=== PATIENT | female | born 1965 | race Hispanic/Latino ===

== ENCOUNTER 2022-06-16 15:54 | Emergency (ER) | payer OTHER ==
[~2022-06-16] VITALS: Ht 175.3 cm; Wt 127.5 kg
== END 2022-06-16 22:37 | disposition home or self-care (01) ==
LOC: ED 15:54
DX: M16.0 Bilateral primary osteoarthritis of hip (principal); M54.32 Sciatica, left side; J44.9 Chronic obstructive pulmonary disease, unspecified
CPT/HCPCS: 73502; 94640; 96372; 99283-25; A9270; J1885

== ENCOUNTER 2024-07-01 15:49 | Inpatient (IN) | payer OTHER ==
[~2024-07-01] VITALS: Ht 175.3 cm; Wt 133.6 kg
[2024-07-01] MEDS ORDERED: VENTOLIN HFA18 GM INH (15:55)
[2024-07-01] MEDS ORDERED: DULOXETINE HCL60 MG PO (15:55)
[2024-07-01] MEDS ORDERED: IPRAT-ALBUT 0.5-3 ML INH (15:55)
[2024-07-01] MEDS ORDERED: GABAPENTIN600 MG PO (15:55)
[2024-07-01] MEDS ORDERED: LOSARTAN POTASS25 MG PO (15:55)
[2024-07-01] MEDS ORDERED: FLUTICASONE-SA1 EAC3 INH (15:56)
[2024-07-01] MEDS ORDERED: ALBUTEROL SULFATE 0.5% 2.5 MG/0.5 ML VIAL INH ONE (16:00)
[2024-07-01] MEDS ORDERED: IPRATROPIUM BROMIDE 2.5 ML VIAL INH ONE (16:00)
[2024-07-01] MEDS ORDERED: methylPREDNISolone SOD SUCC 125 MG/2 ML VIAL IV ONE (16:00)
[2024-07-01 16:03] LABS: BASOPHILS 0.7 % (0-2); HEMATOCRIT 45.1 % (35.0-50.0); HEMOGLOBIN 15.3 g/dL (12.0-18.0); MCH 35.2 (27-36); MCV 103.7 fl (81-99); MONOCYTES 10.5 % (0-12); NEUTROPHILS 64.8 % (39-80); PLATELET COUNT 151 K/uL (140-440); RBC 4.35 M/ul (4.3-5.7); RDW 15.4 (10.5-15.0)
[2024-07-01 16:25] LABS: ALBUMIN 3.2 g/dL (3.4-5.0); ALBUMIN/GLOBULIN RATIO 0.82 (1.1-2.4); ANION GAP 11.1 (7-21); BILIRUBIN, TOTAL 0.3 ng/dL (0.2-1.0); BUN/CREATININE RATIO 10.93 (6.0-28.6); CALCIUM 8.8 mg/dL (8.5-10.1); CREATININE, SERUM 0.64 mg/dL (0.55-1.02); POTASSIUM 4.1 mmol/L (3.5-5.1); PROTEIN, TOTAL 7.1 g/dL (6.4-8.2)
[2024-07-01 16:43] LABS: INFLUENZA B NAA NEGATIVE (NEGATIVE); RESPIRATORY SYNCYTIAL VIR NAA NEGATIVE (NEGATIVE)
[2024-07-01] MEDS ORDERED: ondansetron HCL 4 MG/2 ML VIAL IV ONE (17:00)
[2024-07-01] MEDS ORDERED: MAGNESIUM SULFATE 2 GM/50 ML BAG IV ONE (17:00)
[2024-07-01] MEDS ORDERED: HYDROmorphone HCL 1 MG/ML SYR IV ONE (17:00)
[2024-07-01] MEDS ORDERED: ENOXAPARIN SODIUM 40 MG/0.4 ML SYR SUB-Q SCH (17:20)
[2024-07-01] MEDS ORDERED: ACETAMINOPHEN 325 MG TAB PO PRN (17:30)
[2024-07-01] MEDS ORDERED: ALBUTEROL SULFATE 0.083% 3 ML VIAL INH PRN (18:00)
[2024-07-01 18:05] VITALS: BP 142/84
[2024-07-01 19:45] VITALS: BP 125/72
[2024-07-01] MEDS ORDERED: FUROSEMIDE 40 MG/4 ML VIAL IV SCH (19:54)
[2024-07-01] MEDS ORDERED: CEFTRIAXONE/SODIUM CHLORIDE 2 GM/100 ML PIGGYBACK IV SCH (19:55)
[2024-07-01] MEDS ORDERED: AZITHROMYCIN 250 MG TAB PO SCH (19:56)
[2024-07-01] MEDS ORDERED: ALBUTEROL/IPRATROPIUM 3 ML NEB INH SCH (20:00)
[2024-07-01] MEDS ORDERED: LIDOCAINE 2% VISCOUS 6 ML SYR TOP ONE (20:00)
[2024-07-01] MEDS ORDERED: MELATONIN 3 MG TAB PO PRN (21:00)
[2024-07-01] MEDS ORDERED: GABAPENTIN 300 MG CAP PO SCH (21:00)
[2024-07-01] MEDS ORDERED: NYSTATIN 500,000 UNITS/5 ML CUP PO SCH (21:00)
[2024-07-01 21:14] VITALS: BP 125/72
[2024-07-02] VITALS (9 sets, daily range): BP systolic 135–149; BP diastolic 79–94
[2024-07-02] MEDS ORDERED: MAGNESIUM HYDROXIDE/AL HYDROX 30 ML CUP PO PRN (02:30)
[2024-07-02] MEDS ORDERED: ONDANSETRON 4 MG TAB ODT SL PRN (03:15)
[2024-07-02 05:24] LABS: BASOPHILS 0.6 % (0-2); HEMATOCRIT 46.5 % (35.0-50.0); HEMOGLOBIN 15.3 g/dL (12.0-18.0); LYMPHOCYTES 7.2 % (24-44); MCH 34.7 (27-36); MCV 105.1 fl (81-99); MONOCYTES 5.6 % (0-12); NEUTROPHILS 86.6 % (39-80); PLATELET COUNT 163 K/uL (140-440); RBC 4.42 M/ul (4.3-5.7); RDW 15.5 (10.5-15.0)
[2024-07-02 05:44] LABS: ANION GAP 8.1 (7-21); BUN/CREATININE RATIO 13.75 (6.0-28.6); CALCIUM 9.1 mg/dL (8.5-10.1); CREATININE, SERUM 0.8 mg/dL (0.55-1.02); MAGNESIUM 2.3 mg/dL (1.8-2.4); POTASSIUM 4.1 mmol/L (3.5-5.1)
[2024-07-02] MEDS ORDERED: BUDESONIDE 0.5 MG/2 ML VIAL INH SCH (08:00)
[2024-07-02] MEDS ORDERED: acetaZOLAMIDE 250 MG TAB PO ONE (08:30)
[2024-07-02] MEDS ORDERED: predniSONE 20 MG TAB PO SCH (09:00)
[2024-07-02] MEDS ORDERED: DULOXETINE HCL 60 MG CAP PO SCH (09:00)
[2024-07-02] MEDS ORDERED: LOSARTAN POTASSIUM 25 MG TAB PO SCH (09:00)
[2024-07-02] MEDS ORDERED: PHARMACY RENAL DOSE ADJUSTMENT 1 DOSE MISC PO SCH (12:00)
[2024-07-02] MEDS ORDERED: NICOTINE 7 MG/24 HR 1 EA TDSY TD SCH (12:11)
[2024-07-02] MEDS ORDERED: NICOTINE POLACRILEX 4 MG LOZENGE BUCCAL PRN (12:15)
--- NOTE | 2024-07-02 12:18 | EKG ---
[facility] [address] [facility] [place] [address] Signed Normal sinus rhythm Possible Left atrial enlargement Borderline ECG No previous ECGs available Confirmed by Julita Wild MD ([id number]) on 07/02/2024 12:18:04 PM Electronically Signed By: JULITA WILD DO 07/02/24 1218 PATIENT NAME: SUZANNE MARTÍNEZ Electrocardiogram DATE OF : 67 PHYSICIAN: JULITA WILD DO REPORT #: [id number] REPORT IS CONFIDENTIAL AND NOT TO BE RELEASED WITHOUT AUTHORIZATION
[2024-07-02] MEDS ORDERED: FLONASE ALLERG9.9 ML NAS (15:47)
[2024-07-03] VITALS (10 sets, daily range): BP systolic 138–160; BP diastolic 61–93
[2024-07-03 05:27] LABS: BASOPHILS 0.3 % (0-2); HEMATOCRIT 46.7 % (35.0-50.0); HEMOGLOBIN 15.1 g/dL (12.0-18.0); MCH 34.5 (27-36); MCHC 32.4 g/dl (30-36); MCV 106.5 fl (81-99); MONOCYTES 7.3 % (0-12); NEUTROPHILS 76.4 % (39-80); PLATELET COUNT 168 K/uL (140-440); RBC 4.38 M/ul (4.3-5.7); RDW 15.4 (10.5-15.0)
[2024-07-03 05:49] LABS: ANION GAP 5.5 (7-21); BUN/CREATININE RATIO 15.66 (6.0-28.6); CALCIUM 9.4 mg/dL (8.5-10.1); CREATININE, SERUM 0.83 mg/dL (0.55-1.02); MAGNESIUM 2.3 mg/dL (1.8-2.4); POTASSIUM 3.5 mmol/L (3.5-5.1)
[2024-07-03] MEDS ORDERED: hydrOXYzine pamoate 25 MG CAP PO PRN (12:15)
[2024-07-03] MEDS ORDERED: methylPREDNISolone SOD SUCC 125 MG/2 ML VIAL IV SCH (22:00)
[2024-07-04] VITALS (10 sets, daily range): BP systolic 138–166; BP diastolic 76–97
[2024-07-04] MEDS ORDERED: ALBUTEROL/IPRATROPIUM 3 ML NEB INH SCH (08:00)
[2024-07-04] MEDS ORDERED: Acetylcysteine 800 MG/4 ML VIAL INH SCH (12:00)
[2024-07-04] MEDS ORDERED: busPIRone HCL 5 MG TAB PO SCH (12:02)
[2024-07-04] MEDS ORDERED: guaiFENesin 600 MG TABCR PO SCH (13:10)
[2024-07-04] MEDS ORDERED: POTASSIUM CHLORIDE 10 MEQ TABCR PO ONE (16:00)
[2024-07-04] MEDS ORDERED: FUROSEMIDE 40 MG/4 ML VIAL IV SCH (16:00)
[2024-07-04 16:23] LABS: ANION GAP 8.2 (7-21); BUN/CREATININE RATIO 23.18 (6.0-28.6); CALCIUM 9.6 mg/dL (8.5-10.1); CREATININE, SERUM 0.69 mg/dL (0.55-1.02); POTASSIUM 4.2 mmol/L (3.5-5.1)
[2024-07-04] MEDS ORDERED: hydrOXYzine pamoate 25 MG CAP PO PRN (18:15)
[2024-07-05] VITALS (12 sets, daily range): BP systolic 136–178; BP diastolic 86–103
[2024-07-05 06:00] LABS: BASOPHILS 0.2 % (0-2); EOSINOPHILS 0.3 % (0-6); HEMOGLOBIN 16.2 g/dL (12.0-18.0); MCH 34.1 (27-36); MCHC 32.5 g/dl (30-36); MCV 105.1 fl (81-99); MONOCYTES 4.1 % (0-12); NEUTROPHILS 90.4 % (39-80); PLATELET COUNT 191 K/uL (140-440); RBC 4.76 M/ul (4.3-5.7); RDW 15.1 (10.5-15.0)
[2024-07-05 06:09] LABS: ANION GAP 7.4 (7-21); BUN/CREATININE RATIO 25.33 (6.0-28.6); CALCIUM 9.6 mg/dL (8.5-10.1); CREATININE, SERUM 0.75 mg/dL (0.55-1.02); POTASSIUM 4.4 mmol/L (3.5-5.1)
[2024-07-05] MEDS ORDERED: POLYETHYLENE GLYCOL 3350 1 PACKET PO SCH (10:30)
[2024-07-05] MEDS ORDERED: SENNOSIDES/DOCUSATE 1 EA TAB PO SCH (10:30)
[2024-07-05] MEDS ORDERED: methylPREDNISolone SOD SUCC 125 MG/2 ML VIAL IV SCH (20:00)
[2024-07-06] VITALS (7 sets, daily range): BP systolic 133–151; BP diastolic 80–99
[2024-07-06 05:39] LABS: BASOPHILS 0.2 % (0-2); HEMATOCRIT 49.9 % (35.0-50.0); HEMOGLOBIN 16.6 g/dL (12.0-18.0); LYMPHOCYTES 3.1 % (24-44); MCH 34.4 (27-36); MCHC 33.2 g/dl (30-36); MCV 103.7 fl (81-99); MONOCYTES 3.1 % (0-12); NEUTROPHILS 93.6 % (39-80); PLATELET COUNT 188 K/uL (140-440); RBC 4.81 M/ul (4.3-5.7); RDW 14.7 (10.5-15.0)
[2024-07-06 06:00] LABS: ANION GAP 3.3 (7-21); BUN/CREATININE RATIO 29.26 (6.0-28.6); CALCIUM 9.5 mg/dL (8.5-10.1); CREATININE, SERUM 0.82 mg/dL (0.55-1.02); MAGNESIUM 2.4 mg/dL (1.8-2.4); POTASSIUM 4.3 mmol/L (3.5-5.1)
[2024-07-06] MEDS ORDERED: ALBUTEROL/IPRATROPIUM 3 ML NEB INH SCH (08:00)
[2024-07-06 08:43] LABS: BASE EXCESS, BLOOD GAS 10.5 mmol/L (-2-2); HCO3, BLOOD GAS 38.3 mmol/L (22-26); PCO2, BLOOD GAS 59.1 mmHg (35-45); PH, BLOOD GAS 7.42 (7.35-7.45); PO2, BLOOD GAS 67 mmHg (80-100); TOTAL CO2, BLOOD GAS 40.1
[2024-07-06 08:44] LABS: OXYGEN RECEIVED, BLOOD GAS 5 LPM
[2024-07-06] MEDS ORDERED: FUROSEMIDE 40 MG/4 ML VIAL IV ONE (14:00)
[2024-07-07] VITALS (9 sets, daily range): BP systolic 118–139; BP diastolic 64–85
[2024-07-07 06:25] LABS: BASOPHILS 0.2 % (0-2); EOSINOPHILS 0.1 % (0-6); LYMPHOCYTES 3.4 % (24-44); MCH 34.7 (27-36); MCHC 33.4 g/dl (30-36); MCV 103.8 fl (81-99); MONOCYTES 3.7 % (0-12); NEUTROPHILS 92.6 % (39-80); PLATELET COUNT 187 K/uL (140-440); RBC 4.91 M/ul (4.3-5.7); RDW 14.7 (10.5-15.0)
[2024-07-07 06:34] LABS: ANION GAP 2.9 (7-21); BUN/CREATININE RATIO 31.7 (6.0-28.6); CALCIUM 9.4 mg/dL (8.5-10.1); CREATININE, SERUM 0.82 mg/dL (0.55-1.02); MAGNESIUM 2.2 mg/dL (1.8-2.4); POTASSIUM 3.9 mmol/L (3.5-5.1)
[2024-07-07] MEDS ORDERED: methylPREDNISolone SOD SUCC 125 MG/2 ML VIAL IV SCH (08:15)
[2024-07-07] MEDS ORDERED: FUROSEMIDE 100 MG/10 ML VIAL IV ONE (09:30)
[2024-07-07] MEDS ORDERED: POTASSIUM CHLORIDE 10 MEQ TABCR PO ONE (09:30)
[2024-07-07] MEDS ORDERED: ARTIFICIAL TEARS 15 ML BTL OU PRN (17:45)
[2024-07-08] VITALS (10 sets, daily range): BP systolic 138–144; BP diastolic 77–87
[2024-07-08 05:18] LABS: BASOPHILS 0.2 % (0-2); HEMATOCRIT 48.9 % (35.0-50.0); HEMOGLOBIN 16.3 g/dL (12.0-18.0); LYMPHOCYTES 5.4 % (24-44); MCH 34.2 (27-36); MCHC 33.4 g/dl (30-36); MCV 102.6 fl (81-99); MONOCYTES 8.7 % (0-12); NEUTROPHILS 85.7 % (39-80); PLATELET COUNT 185 K/uL (140-440); RBC 4.77 M/ul (4.3-5.7); RDW 14.5 (10.5-15.0)
[2024-07-08 05:28] LABS: ANION GAP 4.8 (7-21); BUN/CREATININE RATIO 34.44 (6.0-28.6); CALCIUM 9.2 mg/dL (8.5-10.1); CREATININE, SERUM 0.9 mg/dL (0.55-1.02); MAGNESIUM 2.3 mg/dL (1.8-2.4); POTASSIUM 3.8 mmol/L (3.5-5.1)
[2024-07-08] MEDS ORDERED: methylPREDNISolone SOD SUCC 125 MG/2 ML VIAL IV SCH (14:00)
[2024-07-08] MEDS ORDERED: OXYCODONE HCL 5 MG TAB PO PRN (23:00)
[2024-07-09] VITALS (9 sets, daily range): BP systolic 123–163; BP diastolic 77–86
[2024-07-09 05:15] LABS: BASOPHILS 0.2 % (0-2); EOSINOPHILS 0.1 % (0-6); HEMATOCRIT 48.1 % (35.0-50.0); HEMOGLOBIN 16.1 g/dL (12.0-18.0); LYMPHOCYTES 4.5 % (24-44); MCH 34.6 (27-36); MCHC 33.5 g/dl (30-36); MCV 103.1 fl (81-99); MONOCYTES 5.5 % (0-12); NEUTROPHILS 89.7 % (39-80); PLATELET COUNT 188 K/uL (140-440); RBC 4.67 M/ul (4.3-5.7); RDW 14.6 (10.5-15.0)
[2024-07-09 05:24] LABS: ANION GAP 7.9 (7-21); CALCIUM 9.2 mg/dL (8.5-10.1); CREATININE, SERUM 0.92 mg/dL (0.55-1.02); MAGNESIUM 2.3 mg/dL (1.8-2.4); POTASSIUM 3.9 mmol/L (3.5-5.1)
[2024-07-09] MEDS ORDERED: FUROSEMIDE 100 MG/10 ML VIAL IV ONE (09:00)
[2024-07-09] MEDS ORDERED: SODIUM CHLORIDE 1 GM TAB PO ONE (09:00)
[2024-07-09] MEDS ORDERED: POTASSIUM CHLORIDE 10 MEQ TABCR PO ONE (09:00)
[2024-07-09] MEDS ORDERED: methylPREDNISolone SOD SUCC 40 MG/ML VIAL IV SCH (21:00)
[2024-07-09] MEDS ORDERED: INHALER, ASSIST DEVICES 1 EACH SPACER MISC SCH (21:15)
[2024-07-10] VITALS (8 sets, daily range): BP systolic 103–147; BP diastolic 55–84
[2024-07-10 05:25] LABS: HEMOGLOBIN 15.5 g/dL (12.0-18.0); LYMPHOCYTES 9.2 % (24-44); PLATELET COUNT 179 K/uL (140-440)
[2024-07-10 05:29] LABS: BASOPHILS 0.2 % (0-2); HEMATOCRIT 46.3 % (35.0-50.0); MCH 34.7 (27-36); MCHC 33.5 g/dl (30-36); MCV 103.8 fl (81-99); MONOCYTES 7.6 % (0-12); RBC 4.46 M/ul (4.3-5.7); RDW 14.3 (10.5-15.0)
[2024-07-10 05:31] LABS: ANION GAP 7.7 (7-21); BUN/CREATININE RATIO 22.82 (6.0-28.6); CALCIUM 8.9 mg/dL (8.5-10.1); CREATININE, SERUM 0.92 mg/dL (0.55-1.02); MAGNESIUM 2.2 mg/dL (1.8-2.4); POTASSIUM 3.7 mmol/L (3.5-5.1)
[2024-07-10] MEDS ORDERED: MICONAZOLE NITRATE 1 EA BTL TOP SCH (09:26)
[2024-07-10] MEDS ORDERED: VALACYCLOVIR HCL 500 MG TAB PO SCH ×2 (12:32→15:00)
[2024-07-10] MEDS ORDERED: FUROSEMIDE 40 MG/4 ML VIAL IV SCH (12:35)
[2024-07-11] VITALS (10 sets, daily range): BP systolic 123–146; BP diastolic 70–83
[2024-07-11 05:38] LABS: BASOPHILS 0.3 % (0-2); EOSINOPHILS 0.1 % (0-6); HEMATOCRIT 43.7 % (35.0-50.0); HEMOGLOBIN 14.8 g/dL (12.0-18.0); LYMPHOCYTES 9.7 % (24-44); MCH 34.9 (27-36); MCHC 33.9 g/dl (30-36); MCV 102.9 fl (81-99); MONOCYTES 7.4 % (0-12); NEUTROPHILS 82.5 % (39-80); PLATELET COUNT 176 K/uL (140-440); RBC 4.25 M/ul (4.3-5.7); RDW 14.6 (10.5-15.0)
[2024-07-11 05:52] LABS: ALBUMIN 2.9 g/dL (3.4-5.0); ANION GAP 4.8 (7-21); BILIRUBIN, TOTAL 0.4 ng/dL (0.2-1.0); BUN/CREATININE RATIO 23.8 (6.0-28.6); CALCIUM 8.9 mg/dL (8.5-10.1); CREATININE, SERUM 0.84 mg/dL (0.55-1.02); POTASSIUM 3.8 mmol/L (3.5-5.1); PROTEIN, TOTAL 5.8 g/dL (6.4-8.2)
[2024-07-12 05:33] VITALS: BP 127/77
[2024-07-12 05:42] VITALS: BP 127/77
[2024-07-12 05:42] LABS: BASOPHILS 0.9 % (0-2); EOSINOPHILS 1.2 % (0-6); HEMATOCRIT 44.7 % (35.0-50.0); HEMOGLOBIN 14.7 g/dL (12.0-18.0); LYMPHOCYTES 24.5 % (24-44); MCH 34.3 (27-36); MCHC 32.9 g/dl (30-36); MCV 104.2 fl (81-99); MONOCYTES 9.6 % (0-12); NEUTROPHILS 63.8 % (39-80); PLATELET COUNT 191 K/uL (140-440); RBC 4.29 M/ul (4.3-5.7); RDW 14.7 (10.5-15.0)
[2024-07-12 05:53] LABS: ANION GAP 4.4 (7-21); BUN/CREATININE RATIO 26.96 (6.0-28.6); CALCIUM 8.9 mg/dL (8.5-10.1); CREATININE, SERUM 0.89 mg/dL (0.55-1.02); POTASSIUM 3.4 mmol/L (3.5-5.1)
[2024-07-12] MEDS ORDERED: POTASSIUM CHLORIDE 10 MEQ TABCR PO ONE (07:45)
[2024-07-12] MEDS ORDERED: FUROSEMIDE 40 MG TAB PO SCH (09:00)
[2024-07-12] MEDS ORDERED: methylPREDNISolone SOD SUCC 40 MG/ML VIAL IV SCH (09:00)
[2024-07-12 09:13] VITALS: BP 147/83
[2024-07-12] MEDS ORDERED: POTASSIUM CHLORIDE 10 MEQ TABCR ONE (10:00)
[2024-07-12] MEDS ORDERED: VALACYCLOVIR500 MG PO (11:15)
[2024-07-12] MEDS ORDERED: NICOTINE LOZENGE4 MG BUCCAL (11:15)
[2024-07-12] MEDS ORDERED: NIFEDIPINE ER30 M1 PO (11:16)
[2024-07-12] MEDS ORDERED: NYSTATIN100000 UN1 PO (11:18)
[2024-07-12] MEDS ORDERED: OXYCODONE HCL5 MG PO (11:18)
[2024-07-12] MEDS ORDERED: FUROSEMIDE40 MG PO (11:19)
[2024-07-12] MEDS ORDERED: BUSPIRONE HCL5 MG PO (11:19)
[2024-07-12 11:23] VITALS: BP 131/72
[2024-07-12] MEDS ORDERED: PREDNISONE20 MG PO (11:27)
== END 2024-07-12 12:40 | disposition home or self-care (01) | DRG 189 ==
LOC: ED 15:49 → MS 17:27
PROVIDERS: Emergency Medicine; Family Medicine; Student in an Organized Health Care Education/Training Program; ADMIT Student in an Organized Health Care Education/Training Program; ATTEND Student in an Organized Health Care Education/Training Program
DX: J96.01 Acute respiratory failure with hypoxia (principal); J44.1 Chronic obstructive pulmonary disease with (acute) exacerbation; J45.901 Unspecified asthma with (acute) exacerbation; F32.9 Major depressive disorder, single episode, unspecified; F41.1 Generalized anxiety disorder; I27.20 Pulmonary hypertension, unspecified; G47.33 Obstructive sleep apnea (adult) (pediatric); B02.9 Zoster without complications; I10 Essential (primary) hypertension; F39 Unspecified mood [affective] disorder; Z99.81 Dependence on supplemental oxygen; G62.9 Polyneuropathy, unspecified; F17.210 Nicotine dependence, cigarettes, uncomplicated; Z79.899 Other long term (current) drug therapy; E66.01 Morbid (severe) obesity due to excess calories
CPT/HCPCS: 36415; 36600; 71045; 71250; 80048; 80053; 82803; 83735; 83880; 84484; 85025; 85060; 87502; 93005; 93010; 93306; 94060; 94640; 94644; 94660; 94667; 94668; 94726; 94729; 94760; 94761; 94762; 97110; 97161; 97165; 97530; 97535; A9270; J0696; J1171; J1650; J1940; J2405; J2919; J3475; J7512; Q0177; U0002

== ENCOUNTER 2024-07-18 04:50 | Emergency (ER) | payer OTHER ==
[~2024-07-18] VITALS: Ht 175.3 cm; Wt 141.3 kg
[~2024-07-18 04:50] MED LIST: BUSPIRONE HCL5 MG PO; DULOXETINE HCL60 MG PO; FLONASE ALLERG9.9 ML NAS; FLUTICASONE-SA1 EAC3 INH; FUROSEMIDE40 MG PO; GABAPENTIN600 MG PO; IPRAT-ALBUT 0.5-3 ML INH; LOSARTAN POTASS25 MG PO; NICOTINE LOZENGE4 MG BUCCAL; NIFEDIPINE ER30 M1 PO; NYSTATIN100000 UN1 PO; OXYCODONE HCL5 MG PO; PREDNISONE20 MG PO; VALACYCLOVIR500 MG PO; VENTOLIN HFA18 GM INH
--- OUTSIDE RECORDS SUMMARY | 2024-07-18 04:55 | XMS ---
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 No recent Security Events currently on file CRITERIA MET - [facility] - 2 Visits in 30 Days [facility] PRIMARY CARE PHONE: [phone] -[facility] Dentist: Extract Operator [facility] PHONE: [phone] -[place]- Dentist: Extract Operator [facility] PHONE: [phone] Trae Hudson Psychiatric Registered Nurse/Piano Sounding Board Matcher [facility] TEAM PHONE: Unknown JAGUAR BERNAL Nurse Practitioner: Current PHONE: [phone] Luis has no Care Guidelines for this patient. Saleem VISIT COUNT (12 MO.) 2 PAULO [facility]os TOTAL 2 NOTE: Visits indicate total known visits. ED/UCC VISIT TRACKING (12 MO.) 07/18/2024 04:50 [facility]ULO [facility] OR TYPE: Emergency COMPLAINT: - CHEST PAIN 07/01/2024 15:49 [facility] TYPE: Emergency COMPLAINT: - SOB INPATIENT VISIT TRACKING (12 MO.) 07/01/2024 17:27 [facility] TYPE: [facility] - Acute respiratory failure with hypoxia - Chronic obstructive pulmonary disease with (acute) exacerbation - Chronic obstructive pulmonary disease with (acute) exacerbation - Dependence on supplemental oxygen - Dependence on supplemental oxygen - Essential (primary) hypertension - Essential (primary) hypertension - Generalized anxiety disorder - Generalized anxiety disorder - Major depressive disorder, single episode, unspecified - Major depressive disorder, single episode, unspecified - Morbid (severe) obesity due to excess calories - Morbid (severe) obesity due to excess calories - Nicotine dependence, cigarettes, uncomplicated - Nicotine dependence, cigarettes, uncomplicated - Obstructive sleep apnea (adult) (pediatric) - Obstructive sleep apnea (adult) (pediatric) - 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
[2024-07-18] MEDS ORDERED: ASPIRIN 81 MG CHEW PO ONE (05:00)
[2024-07-18] MEDS ORDERED: MORPHINE SULFATE 4 MG/ML VIAL IV ONE (05:00)
[2024-07-18] MEDS ORDERED: NITROGLYCERIN PACKET TOP ONE (05:00)
[2024-07-18 05:21] LABS: BASOPHILS 0.9 % (0-2); HEMATOCRIT 40.6 % (35.0-50.0); HEMOGLOBIN 13.5 g/dL (12.0-18.0); LYMPHOCYTES 26.1 % (24-44); MCH 34.5 (27-36); MCHC 33.3 g/dl (30-36); MCV 103.4 fl (81-99); MONOCYTES 9.4 % (0-12); NEUTROPHILS 62.6 % (39-80); PLATELET COUNT 254 K/uL (140-440); RBC 3.92 M/ul (4.3-5.7)
[2024-07-18 05:22] LABS: INR 0.87 (0.80-1.30); PROTIME 11.2 Sec (11.2-14.2)
[2024-07-18] MEDS ORDERED: FUROSEMIDE 100 MG/10 ML VIAL IV ONE (05:30)
[2024-07-18 05:34] LABS: ALBUMIN 2.7 g/dL (3.4-5.0); ALBUMIN/GLOBULIN RATIO 0.9 (1.1-2.4); ANION GAP 9.3 (7-21); BILIRUBIN, TOTAL 0.3 ng/dL (0.2-1.0); BUN/CREATININE RATIO 16.66 (6.0-28.6); CALCIUM 8.8 mg/dL (8.5-10.1); CREATININE, SERUM 0.78 mg/dL (0.55-1.02); POTASSIUM 3.3 mmol/L (3.5-5.1); PROTEIN, TOTAL 5.7 g/dL (6.4-8.2)
[2024-07-18] MEDS ORDERED: LASIX40 MG PO (05:45)
[2024-07-18] MEDS ORDERED: TRAMADOL HCL 50 MG HOME.PACK PO ONE (06:00)
[2024-07-18] MEDS ORDERED: LIDOCAINE HCL 4% 1 EACH PATCH TD ONE (06:00)
[2024-07-18 06:15] VITALS: BP 140/89
[2024-07-18] MEDS ORDERED: LIDOCAINE PATCH REMOVAL 1 EA TD SCH (21:00)
--- NOTE | 2024-07-19 14:04 | EKG ---
[facility] [address] [facility] [place] [address] Signed Normal sinus rhythm Normal ECG When compared with ECG of 01-JUL-2024 16:33, No significant change was found Confirmed by Julita Wild MD ([id number]) on 07/19/2024 2:04:13 PM Electronically Signed By: JULITA WILD DO 07/19/24 1404 PATIENT NAME: SUZANNE MARTÍNEZ Electrocardiogram DATE OF : 67 PHYSICIAN: JULITA WILD DO REPORT #: [id number] REPORT IS CONFIDENTIAL AND NOT TO BE RELEASED WITHOUT AUTHORIZATION
== END 2024-07-18 06:15 | disposition home or self-care (01) ==
LOC: ED 04:50
PROVIDERS: Family Medicine
DX: J90 Pleural effusion, not elsewhere classified (principal); J44.89 Other specified chronic obstructive pulmonary disease; I50.9 Heart failure, unspecified; Z79.899 Other long term (current) drug therapy; Z79.52 Long term (current) use of systemic steroids
CPT/HCPCS: 36415; 71045; 80053; 83735; 83880; 84484; 85025; 85379; 85610; 93005; 93010; 96374; 96375; 99285-25; A9270; J1940; J2270